=== PATIENT | male | born 1950 | race Caucasian/White ===

== ENCOUNTER 2019-07-09 14:18 | Emergency (ER) | payer OTHER ==
[2019-07-09] MEDS ORDERED: MECLIZINE HCL 12.5 MG TAB ONE (15:13)
--- NOTE | 2019-07-09 15:58 | RAD REPORT ---
EXAM DESCRIPTION: CT - Head Brain Wo Cont - 07/09/2019 3:51 pm CLINICAL HISTORY: dizziness Headache, drowsiness COMPARISON: No comparisons TECHNIQUE: All CT scans are performed using dose optimization technique as appropriate and may inclu de automated exposure control or mA/KV adjustment according to patient size. FINDINGS: No intracranial hemorrhage, hydrocephalus or extra-axial fluid collection.Mild brain atrop hy is seen with areas of gliosis in both occipital poles likely related to previous infarction. Mild generalized brain atrophy noted.No areas of brain edema or evidence of midline shift. The paranasal sinuses and mastoids are clear. The calvarium is intact. IMPRESSION: No acute intracranial abnormality.
--- NOTE | 2019-07-09 16:11 | EDPHYS ---
Physician Documentation [facility] Name: Braden Delvalle Age: 69 yrs Sex: Male : 1950 Arrival Date: 07/09/2019 Time: 14:22 Bed 17 Private MD: Shay White T ED Physician Kade Donahue HPI: 07/08 15:27 This 69 yrs old Male presents to ER via Ambulatory with complaints of la1 Dizziness. 15:27 The patient presents with sense of spinning, vertigo. Onset: The symptoms/episode la1 began/occurred this morning. Context: occurred at home, occurred while the patient was sitting, just prior to the episode the patient experienced no apparent symptoms. Modifying factors: The symptoms are alleviated by holding head still, the symptoms are aggravated by movement of head, changing position. Associated signs and symptoms: Pertinent negatives: abdominal pain, blurred vision, chest pain, confusion, diaphoresis, focal weakness, head injury, near-syncope, numbness, palpitations, seizure, syncope, vomiting. Severity of symptoms: At their worst the symptoms were mild in the emergency department the symptoms have improved. Patient's baseline: Neuro: alert and fully oriented, Motor: no deficits, Ambulation: walks without assistance, Speech: normal. The patient has not experienced similar symptoms in the past. pt with vertigo when he moves his head, feels ok at rest. Historical: - Allergies: 14:34 No Known Allergies; ph - PMHx: 14:34 Hypertension; Diabetes - NIDDM; CVA; Hyperlipidemia; ph - PSHx: 14:34 Knee surgery; Appendectomy; ph - Immunization history:: Flu vaccine is up to date. - Social history:: Smoking status: Patient denies any tobacco usage or history of. ROS: 15:28 Constitutional: Negative for fever, chills, and weight loss, Eyes: Negative for injury, la1 pain, redness, and discharge, ENT: Negative for injury, pain, and discharge, Neck: Negative for injury, pain, and swelling, Cardiovascular: Negative for chest pain, palpitations, and edema, Respiratory: Negative for shortness of breath, cough, wheezing, and pleuritic chest pain, Abdomen/GI: Negative for abdominal pain, nausea, vomiting, diarrhea, and constipation, Back: Negative for injury and pain, MS/Extremity: Negative for injury and deformity, Skin: Negative for injury, rash, and discoloration. 15:28 Neuro: Positive for dizziness, Negative for altered mental status, gait disturbance, headache, hearing loss, loss of consciousness, numbness, seizure activity, speech changes, syncope, near syncope, tingling, tinnitus, tremor, visual changes, weakness. Exam: 15:30 Constitutional: This is a well developed, well nourished patient who is awake, alert, la1 and in no acute distress. Head/Face: Normocephalic, atraumatic. Eyes: Pupils equal round and reactive to light, extra-ocular motions intact. Lids and lashes normal. Conjunctiva and sclera are non-icteric and not injected. Cornea within normal limits. Periorbital areas with no swelling, redness, or edema. ENT: Nares patent. No nasal discharge, no septal abnormalities noted. Tympanic membranes are normal and external auditory canals are clear. Oropharynx with no redness, swelling, or masses, exudates, or evidence of obstruction, uvula midline. Mucous membranes moist. Neck: Trachea midline, Supple, full range of motion without nuchal rigidity, or vertebral point tenderness. No Meningismus. Chest/axilla: Normal chest wall appearance and motion. Nontender with no deformity. No lesions are appreciated. Cardiovascular: Regular rate and rhythm with a normal S1 and S2. No gallops, murmurs, or rubs. Normal PMI, no JVD. No pulse deficits. Respiratory: Lungs have equal breath sounds bilaterally, clear to auscultation Abdomen/GI: Soft, non-tender, with normal bowel sounds. No distension Back: No spinal tenderness. No costovertebral tenderness. Full range of motion. Skin: Warm, dry with normal turgor. Normal color with no rashes, no lesions, and no evidence of cellulitis. MS/ Extremity: Pulses equal, no cyanosis. Neurovascular intact. Full, normal range of motion. 15:30 Neuro: Orientation: is normal, to person, place, time \T\ situation. Memory: is normal, Cranial nerves: CN II- XII are normal as tested, extraocular movements are intact, Facial palsy and sensory deficits are absent. no gross hearing deficit,. a few beats of right beating horizontal nystagmus noted. Speech is clear and appropriate. Sensation: is normal. Vital Signs: 14:29 BP 133 / 78; Pulse 78; Resp 18; Temp 98.1; Pulse Ox 98% ; Weight 74.84 kg; Height 5 ft. ph 8 in. (172.72 cm); 15:30 BP 129 / 84; Pulse 76; Resp 18; Pulse Ox 96% on R/A; Pain 0/10; rb1 16:30 BP 139 / 80; Pulse 68; Resp 17; Pulse Ox 95% on R/A; Pain 0/10; rb1 14:29 Body Mass Index 25.09 (74.84 kg, 172.72 cm) ph MDM: 14:46 Patient medically screened. la1 16:05 Data reviewed: vital signs, nurses notes, radiologic studies, I have discussed the la1 patient's presentation/case with the attending Emergency Department Physician; and as a result, I will discharge patient. Data interpreted: Pulse oximetry: on room air is 96 %. Interpretation: normal. Counseling: I had a detailed discussion with the patient and/or guardian regarding: the historical points, exam findings, and any diagnostic results supporting the discharge/admit diagnosis, radiology results, the need for outpatient follow up, a family practitioner, to return to the emergency department if symptoms worsen or persist or if there are any questions or concerns that arise at home. Medication response: anitvert . Response to treatment: the patient's symptoms have markedly improved after treatment. ED course: Pt feeling better after antivert, no focal neurological deficits, mild intermittent horizontal right beating nystagmus. Pt only has sx when moving head, speech is normal, gait is normal. Strict return precautions given. . 07/08 15:23 Order name: Head Brain Wo Cont EDMS Administered Medications: 15:12 Drug: Antivert 25 mg Route: PO; rb1 15:42 Follow up: Response: No adverse reaction rb1 Disposition: 18:22 Co-signature as Attending Physician, Kade Donahue MD. rn Disposition: 07/09/19 16:10 Discharged to Home. Impression: Benign paroxysmal vertigo, Dizziness and giddiness. - Condition is Stable. - Discharge Instructions: Benign Positional Vertigo, Dizziness. - Prescriptions for Meclizine 25 mg Oral Tablet - take 1 tablet by ORAL route every 8 hours As needed; 30 tablet. - Medication Reconciliation Form, Thank You Letter form. - Follow up: Shay White MD; When: 2 - 3 days; Reason: Recheck today's complaints, Re-evaluation by your physician. - Problem is new. - Symptoms have improved. Signatures: Dispatcher [employer] EDMN Kade Donahue MD MD rn Derrell Lowery, KAIAKO KURA TUARUA-C KAIAKO KURA TUARUA-Cla1 Leigh Freitas, RN RN ph Latha Simms, RN RN rb1 Corrections: (The following items were deleted from the chart) 15:22 15:13 CT-HEAD/BRAIN W/O CONTRAST ordered. EDMN EDMS 17:23 17:17 Head Brain Wo Cont+CT.RAD.BRZ ordered. EDMN EDMS 17:25 16:10 07/09/2019 16:10 Discharged to Home. Impression: Benign paroxysmal vertigo; rb1 Dizziness and giddiness. Condition is Stable. Forms are Medication Reconciliation Form, Thank You Letter, Antibiotic Education, Prescription Opioid Use. Follow up: Shay White; When: 2 - 3 days; Reason: Recheck today's complaints, Re-evaluation by your physician. Problem is new. Symptoms have improved. la1
--- NOTE | 2019-07-09 16:11 | ER ---
Nurse's Notes [facility] Name: Braden Delvalle Age: 69 yrs Sex: Male : 1950 Arrival Date: 07/09/2019 Time: 14:22 Bed 17 Private MD: Shay White T Diagnosis: Benign paroxysmal vertigo;Dizziness and giddiness Presentation: 07/08 14:29 Chief complaint: Patient states: Dizziness upon waking this morning at 0830, states, " ph I went to sit up and got very dizzy and laid back down." Denies weakness, also denies N/V or recent illness, went to bed last night at approx 1130. Coronavirus screen: The patient has NOT traveled to a country currently being monitored by the [facility] within the last 14 days. The patient has NOT had contact with any known and/or suspected case of coronavirus. Ebola Screen: No symptoms or risks identified at this time. Initial Sepsis Screen: Does the patient meet any 2 criteria? No. Patient's initial sepsis screen is negative. Does the patient have a suspected source of infection? No. Patient's initial sepsis screen is negative. Risk Assessment: Do you want to hurt yourself or someone else? Patient reports no desire to harm self or others. 14:29 Method Of Arrival: Ambulatory ph 14:29 Acuity: CONRADO 3 ph 14:35 Onset of symptoms was July 09, 2019. rb1 Historical: - Allergies: 14:34 No Known Allergies; ph - PMHx: 14:34 Hypertension; Diabetes - NIDDM; CVA; Hyperlipidemia; ph - PSHx: 14:34 Knee surgery; Appendectomy; ph - Immunization history:: Flu vaccine is up to date. - Social history:: Smoking status: Patient denies any tobacco usage or history of. Screenin:35 Abuse screen: Denies threats or abuse. Nutritional screening: No deficits noted. rb1 Tuberculosis screening: No symptoms or risk factors identified. Fall Risk None identified. Assessment: 14:35 General: Appears in no apparent distress. comfortable, Behavior is calm, cooperative, rb1 Denies fever, feeling ill, fatigue. Pain: Denies pain. Neuro: Level of Consciousness is awake, alert, obeys commands, Oriented to person, place, time, situation, Reports dizziness, Denies blurred vision headache. Cardiovascular: Capillary refill < 3 seconds is brisk in bilateral fingers. Respiratory: Airway is patent Respiratory effort is even, unlabored, Respiratory pattern is regular, symmetrical. GI: No signs and/or symptoms were reported involving the gastrointestinal system. : No signs and/or symptoms were reported regarding the genitourinary system. Derm: Skin is pink, warm \\T\\ dry. 15:30 Reassessment: Patient appears in no apparent distress at this time. Patient and/or rb1 family updated on plan of care and expected duration. Pain level reassessed. Patient is alert, oriented x 3, equal unlabored respirations, skin warm/dry/pink. 15:46 Reassessment: pt went to CT. rb1 16:40 Reassessment: Patient appears in no apparent distress at this time. Patient and/or rb1 family updated on plan of care and expected duration. Pain level reassessed. Patient is alert, oriented x 3, equal unlabored respirations, skin warm/dry/pink. Patient denies pain at this time. Vital Signs: 14:29 BP 133 / 78; Pulse 78; Resp 18; Temp 98.1; Pulse Ox 98% ; Weight 74.84 kg; Height 5 ft. ph 8 in. (172.72 cm); 15:30 BP 129 / 84; Pulse 76; Resp 18; Pulse Ox 96% on R/A; Pain 0/10; rb1 16:30 BP 139 / 80; Pulse 68; Resp 17; Pulse Ox 95% on R/A; Pain 0/10; rb1 14:29 Body Mass Index 25.09 (74.84 kg, 172.72 cm) ph ED Course: 14:22 Patient arrived in ED. ag5 14:22 Shay White MD is Private Physician. ag5 14:32 Triage completed. ph 14:34 Arm band placed on Patient placed in an exam room, on a stretcher. ph 14:35 Patient has correct armband on for positive identification. Bed in low position. Call rb1 light in reach. Side rails up X 1. Pulse ox on. NIBP on. Warm blanket given. 14:44 Derrell Lowery FNP-C is PHCP. la1 14:44 Kade Donahue MD is Attending Physician. la1 15:05 Latha Simms, DAMON is Primary Nurse. rb1 15:51 Head Brain Wo Cont In Process Unspecified. EDMS 16:10 Shay White MD is Referral Physician. la1 16:52 No provider procedures requiring assistance completed. Patient did not have IV access rb1 during this emergency room visit. Administered Medications: 15:12 Drug: Antivert 25 mg Route: PO; rb1 15:42 Follow up: Response: No adverse reaction rb1 Outcome: 16:10 Discharge ordered by MD. la1 16:52 Patient left the ED. rb1 16:52 Discharged to home ambulatory, with significant other. rb1 16:52 Condition: stable 16:52 Discharge instructions given to patient, Instructed on discharge instructions, follow up and referral plans. medication usage, Demonstrated understanding of instructions, follow-up care, medications, Prescriptions given X Signatures: Dispatcher [employer] EDCA Derrell Lowery, PUSHER RUNNER-C PUSHER RUNNER-Cla1 Leigh Freitas, RN RN Latha Simms RN RN rb1 Estephanie Deal ag5 Corrections: (The following items were deleted from the chart) 17:27 17:25 Patient left the ED. rb1 rb1
[2019-07-09 17:38] VITALS: TEMP 98.1
[2019-07-09 17:39] VITALS: BP 129/84; O2SAT 96
== END 2019-07-09 17:25 | disposition home or self-care (01) ==
LOC: ER 14:18
DX: H81.10 Benign paroxysmal vertigo, unspecified ear (principal); I10 Essential (primary) hypertension
CPT/HCPCS: 70450; 99284; J8597

== ENCOUNTER 2020-08-16 20:11 | Emergency (ER) | payer OTHER ==
[2020-08-16] MEDS ORDERED: MECLIZINE HCL 12.5 MG TAB ONE (21:48)
--- NOTE | 2020-08-16 23:31 | ER ---
Nurse's Notes [facility] Name: Braden Delvalle Age: 70 yrs Sex: Male : 1950 Arrival Date: 08/16/2020 Time: 20:15 Bed 27 Private MD: Diagnosis: Vertigo Presentation: 08/16 20:54 Chief complaint: Patient states: HX of vertigo of July last year. This time, it ca1 started yesterday. Reports dizziness and pressure on my head. Denies N/V. Coronavirus screen: Client denies travel out of the [place] in the last 14 days. At this time, the client does not indicate any symptoms associated with coronavirus-19. Ebola Screen: Patient negative for fever greater than or equal to 101.5 degrees Fahrenheit, and additional compatible Ebola Virus Disease symptoms Patient denies exposure to infectious person. Patient denies travel to an Ebola-affected area in the 21 days before illness onset. No symptoms or risks identified at this time. Initial Sepsis Screen: Does the patient meet any 2 criteria? No. Patient's initial sepsis screen is negative. Does the patient have a suspected source of infection? No. Patient's initial sepsis screen is negative. Risk Assessment: Do you want to hurt yourself or someone else? Patient reports no desire to harm self or others. Onset of symptoms was August 15, 2020. 20:54 Method Of Arrival: Ambulatory ca1 20:54 Acuity: CONRADO 3 ca1 Historical: - Allergies: 20:58 No Known Allergies; ca1 - Home Meds: 20:59 warfarin 4 mg Oral tab 1 tab once daily [Active]; ca1 - PMHx: 20:58 CVA; Diabetes - NIDDM; Hyperlipidemia; Hypertension; ca1 - PSHx: 20:58 Knee surgery; Appendectomy; ca1 - Immunization history:: Client reports receiving the 2nd dose of the Covid vaccine, Client reports receiving the 1st dose of the Covid vaccine, Pneumococcal vaccine is up to date, Flu vaccine is up to date. - Social history:: Smoking status: Patient/guardian denies using tobacco, the patient reports quitting approximately 25 years ago. Screenin:39 Abuse screen: Denies threats or abuse. Denies injuries from another. Nutritional zb screening: No deficits noted. Tuberculosis screening: No symptoms or risk factors identified. Fall Risk None identified. Assessment: 21:37 General: Appears in no apparent distress. comfortable, Behavior is calm, cooperative, zb appropriate for age. Pain: Denies pain. Neuro: Level of Consciousness is awake, alert, obeys commands, Oriented to person, place, time, situation, Director [employer] are equal bilaterally Moves all extremities. Full function Gait is steady, Speech is normal, Intact Reports dizziness, since yesterday a syncopal episode. Cardiovascular: Capillary refill < 3 seconds in bilateral fingers Patient's skin is warm and dry. Pulses are all present. Respiratory: Airway is patent Respiratory effort is even, unlabored, Respiratory pattern is regular, symmetrical. GI: Abdomen is round. Derm: Skin is intact, is healthy with good turgor, Skin is dry, Skin is normal, Skin temperature is warm. Musculoskeletal: Range of motion: intact in all extremities. 22:30 Reassessment: Patient appears in no apparent distress at this time. Patient and/or zb family updated on plan of care and expected duration. Pain level reassessed. Patient is alert, oriented x 3, equal unlabored respirations, skin warm/dry/pink. 23:53 Reassessment: patient and family d/c. ambulated well. no issue at this time. zb Vital Signs: 20:54 BP 129 / 82; Pulse 79; Resp 15 S; Temp 97.5(TE); Pulse Ox 16% on R/A; Weight 83.91 kg ca1 (R); Height 5 ft. 8 in. (172.72 cm) (R); Pain 0/10; 22:30 BP 124 / 79; Pulse 72; Resp 18; Pulse Ox 98% on R/A; zb 23:33 BP 112 / 69; Pulse 88; Resp 16; Pulse Ox 100% on R/A; zb 20:54 Body Mass Index 28.13 (83.91 kg, 172.72 cm) ca1 ED Course: 20:15 Patient arrived in ED. bp1 20:57 Triage completed. ca1 20:58 Arm band placed on right wrist. ca1 21:01 Phoebe Esteves RN is Primary Nurse. zb 21:03 Marco Antonio Bentley PA is PHCP. jmm 21:03 Jacob Epperson MD is Attending Physician. jmm 21:39 Patient has correct armband on for positive identification. Bed in low position. Call zb light in reach. Side rails up X 1. Adult w/ patient. Pulse ox on. NIBP on. Door closed. Noise minimized. 22:02 CT Head Angio In Process Unspecified. EDMS 22:03 CT Neck Angio In Process Unspecified. EDMS 22:03 CT Head Brain wo Cont In Process Unspecified. EDMS 22:30 Inserted saline lock: 20 gauge in left forearm, using aseptic technique. ,using aseptic zb technique. performed by 4. 23:52 No provider procedures requiring assistance completed. IV discontinued, intact, zb bleeding controlled, No redness/swelling at site. Pressure dressing applied. Administered Medications: 21:30 Drug: Meclizine 25 mg Route: PO; zb 22:30 Follow up: Response: No adverse reaction; Marked relief of symptoms zb Outcome: 23:30 Discharge ordered by . qi 23:52 Discharged to home ambulatory. zb 23:52 Condition: stable 23:52 Discharge instructions given to patient, family, Instructed on discharge instructions, follow up and referral plans. medication usage, Demonstrated understanding of instructions, follow-up care, medications, Prescriptions given X 1. 23:53 Patient left the ED. zb Signatures: Dispatcher [employer] EDMS Marco Antonio Bentley PA PA jmm Acob, Cheryl, RN RN Angela Ayala Zipporah, RN RN bridget
--- NOTE | 2020-08-16 23:31 | EDPHYS ---
Physician Documentation [facility] Name: Braden Delvalle Age: 70 yrs Sex: Male : 1950 Arrival Date: 08/16/2020 Time: 20:15 Bed 27 Private MD: ED Physician Jacob Epperson HPI: 08/16 21:08 This 70 yrs old Male presents to ER via Ambulatory with complaints of Vertigo.jmm 21:08 The patient presents with dizziness. Onset: The symptoms/episode began/occurred jmm acutely, just prior to arrival. Modifying factors: The symptoms are alleviated by nothing, the symptoms are aggravated by movement of head, standing up, changing position. Associated signs and symptoms: Pertinent negatives: vomiting, weakness. This is a 70 year old male with a history of cva, hlp, htn that presents to the ED with complaints of acute onset dizziness which began after getting up out of bed. Patient suffers from chronic allergies. Denies weakness, vomiting, changes in vision. . Historical: - Allergies: 20:58 No Known Allergies; ca1 - Home Meds: 20:59 warfarin 4 mg Oral tab 1 tab once daily [Active]; ca1 - PMHx: 20:58 CVA; Diabetes - NIDDM; Hyperlipidemia; Hypertension; ca1 - PSHx: 20:58 Knee surgery; Appendectomy; ca1 - Immunization history:: Client reports receiving the 2nd dose of the Covid vaccine, Client reports receiving the 1st dose of the Covid vaccine, Pneumococcal vaccine is up to date, Flu vaccine is up to date. - Social history:: Smoking status: Patient/guardian denies using tobacco, the patient reports quitting approximately 25 years ago. ROS: 21:08 Constitutional: Negative for fever, chills, and weight loss, Cardiovascular: Negative jmm for chest pain, palpitations, and edema, Respiratory: Negative for shortness of breath, cough, wheezing, and pleuritic chest pain. 21:08 Neuro: Positive for vertigo. 21:08 All other systems are negative. Exam: 21:08 Constitutional: This is a well developed, well nourished patient who is awake, alert, jmm and in no acute distress. Head/Face: atraumatic. 21:08 ENT: Moist Mucus Membranes Neck: Trachea midline, Supple Chest/axilla: Normal chest wall appearance and motion. Cardiovascular: Regular rate and rhythm. No edema appreciated Respiratory: Normal respirations, no respiratory distress appreciated Abdomen/GI: Non distended, soft Back: Normal ROM Skin: General appearance color normal MS/ Extremity: Moves all extremities, no obvious deformities appreciated, no edema noted to the lower extremities 21:08 Eyes: Nystagmus: 21:08 Neuro: Orientation: is normal, Mentation: is normal, Memory: is normal, Cerebellar function: is grossly normal. 21:08 Psych: Behavior/mood is pleasant, cooperative. Vital Signs: 20:54 BP 129 / 82; Pulse 79; Resp 15 S; Temp 97.5(TE); Pulse Ox 16% on R/A; Weight 83.91 kg ca1 (R); Height 5 ft. 8 in. (172.72 cm) (R); Pain 0/10; 22:30 BP 124 / 79; Pulse 72; Resp 18; Pulse Ox 98% on R/A; zb 23:33 BP 112 / 69; Pulse 88; Resp 16; Pulse Ox 100% on R/A; zb 20:54 Body Mass Index 28.13 (83.91 kg, 172.72 cm) ca1 MDM: 21:08 Patient medically screened. [facility] 23:28 Data reviewed: vital signs, nurses notes. Counseling: I had a detailed discussion with qi the patient and/or guardian regarding: the historical points, exam findings, and any diagnostic results supporting the discharge/admit diagnosis, radiology results, the need for outpatient follow up, to return to the emergency department if symptoms worsen or persist or if there are any questions or concerns that arise at home. ED course: CTA is negative. I do not suspect central cause. Patient states feeling much better. Most likely perepheral. Advised to follow up with pcp/neuro. Patient understood and agrees with the plan of care. . 08/16 21:13 Order name: CT Head Angio [facility] 08/16 21:13 Order name: CT Head Brain wo Cont [facility] 08/16 21:13 Order name: Saline Lock; Complete Time: 21:34 [facility] 08/16 21:13 Order name: CT Neck Angio [facility] Administered Medications: 21:30 Drug: Meclizine 25 mg Route: PO; zb 22:30 Follow up: Response: No adverse reaction; Marked relief of symptoms zb Disposition: 08/17 07:27 Co-signature as Attending Physician, Jacob Epperson MD. [email or web address] Disposition: 08/16/20 23:30 Discharged to Home. Impression: Vertigo. - Condition is Stable. - Discharge Instructions: Benign Positional Vertigo, Krystle Maneuver Self-Care. - Prescriptions for Meclizine 25 mg Oral Tablet - take 1 tablet by ORAL route every 8 hours As needed; 30 tablet. - Medication Reconciliation Form, Thank You Letter, Antibiotic Education, Prescription Opioid Use form. - Follow up: Private Physician; When: 2 - 3 days; Reason: Recheck today's complaints, Continuance of care, Re-evaluation by your physician. Signatures: Dispatcher [employer] EDMS Marco Antonio Bentley PA PA jmm Acob, Cheryl RN RN ca1 Jacob Epperson MD MD [facility] Phoebe Esteves RN RN zb Corrections: (The following items were deleted from the chart) 08/16 23:53 23:30 08/16/2020 23:30 Discharged to Home. Impression: Vertigo. Condition is Stable. zb Forms are Medication Reconciliation Form, Thank You Letter, Antibiotic Education, Prescription Opioid Use. Follow up: Private Physician; When: 2 - 3 days; Reason: Recheck today's complaints, Continuance of care, Re-evaluation by your physician. qi
[2020-08-16 23:59] VITALS: TEMP 97.5
[2020-08-17 00:39] VITALS: BP 112/69; O2SAT 100
--- NOTE | 2020-08-17 20:13 | RAD REPORT ---
EXAM DESCRIPTION: CT - Head Brain Wo Cont - 08/17/2020 6:44 am CLINICAL HISTORY: DIZZINESS COMPARISON: 07/09/2019 TECHNIQUE: Axial CT of the head obtained from the skull apex to the skull base without contrast. Thi s exam was performed according to our departmental dose-optimization program, which includes automate d exposure control, adjustment of the mA and/or kV according to patient size and/or use of iterative reconstruction technique. FINDINGS: No acute intracranial hemorrhage identified. No mass, mass effect, shift of the midline, a bnormal extra-axial fluid collection or CT evidence of acute ischemic change identified. The ventricu lar system and sulcal spaces are mildly enlarged compatible with mild cerebral atrophy. Scattered a reas of hypodensity throughout the supratentorial white matter are nonspecific and may be related to chronic small vessel ischemic change. Bilateral occipital encephalomalacia compatible with remote inf arctions. The visualized paranasal sinuses and mastoid air cells are well aerated. No skull fracture identifi ed. Visualized orbits and globes are unremarkable. Atherosclerotic calcification of the intracranial internal carotid arteries. IMPRESSION: 1. No acute intracranial abnormality by CT criteria. Electronically signed by: Ramakrishna Velasquez 08/16/2020 10:17 PM CDT Due to temporary technical issues with the PACS/Fluency reporting system, reports are being signed by the in house radiologists without review as a courtesy to insure prompt reporting. The interpreting radiologist is fully responsible for the content of the report.
--- NOTE | 2020-08-17 20:15 | RAD REPORT ---
EXAM DESCRIPTION: CT - Neck Angio - 08/17/2020 6:44 am 1. CTA of the head with contrast. 2. CTA of the neck with contrast. CLINICAL HISTORY: 70 years, Male, DIZZINESS COMPARISON: 07/09/2019 TECHNIQUE: Axial CTA images of the head and neck obtained following the uncomplicated intravenous ad ministration of iodinated contrast. 3-D/MIP reformatted images available. This exam was performed acc ording to our departmental dose-optimization program, which includes automated exposure control, adju stment of the mA and/or kV according to patient size and/or use of iterative reconstruction technique . FINDINGS: CTA head: In the anterior circulation, the intracranial internal carotid arteries have normal course and calibe r. Mild nonflow limiting atherosclerotic plaque of the paraclinoid intracranial internal carotid pamela mercedes. The internal carotid arteries bifurcate into widely patent A1 and M1 segments of the anterior a nd middle cerebral arteries respectively. No evidence of flow-limiting stenosis, aneurysm, occlusion, or dissection in the anterior circulation. The anterior communicating artery is patent. In the posterior circulation, the intracranial vertebral arteries combine to form a patent basilar ar olimpia. The basilar artery bifurcates into normal caliber posterior cerebral arteries. 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 No evidence of stenosis, aneurysm , occlusion, or dissection in the posterior circulation. No definite acute intracranial abnormality identified. No acute abnormality of the osseous calvarium. Paranasal sinuses and mastoid air cells are well aerated. CTA NECK: The aortic arch has bovine configuration. The origin of the great vessels are widely patent. The right common carotid artery is widely patent and bifurcates into widely patent internal and exter nal carotid arteries. Minimal nonflow-limiting calcified atherosclerotic plaque at the carotid bulb. 0% stenosis by NASCET criteria. No evidence of occlusion or dissection. The left common carotid artery is widely patent and bifurcates into widely patent internal and political theory professor al carotid arteries. Minimal nonflow limiting calcified atherosclerotic plaque at the carotid bulb. 0 % stenosis by NASCET criteria. No evidence of occlusion or dissection. The cervical vertebral arteries are widely patent throughout their course. No evidence of occlusion, stenosis, or dissection. No definite acute abnormalities in the neck soft tissues. No apical pneumothorax. No acute osseous ab normalities. Multilevel degenerative endplate spondylosis, facet arthropathy, and uncovertebral spurr ing with mild to moderate multilevel loss of intervertebral disc height. IMPRESSION: 1. No evidence of flow-limiting stenosis/occlusion involving the cervical carotid or gokul tebral arteries. 2. No evidence of large vessel occlusion, flow-limiting stenosis, or aneurysm in the anterior intracr anial arterial circulation. 3. No acute abnormality identified in the posterior intracranial arterial circulation. Narrow caliber patent bilateral posterior cerebral arteries may represent diminished flow on the basis of encephalo malacia related to remote bilateral WINDOWS APPLICATION PACKAGER distribution infarctions. Electronically signed by: Ramakrishna Velasquez 08/16/2020 10:34 PM CDT Due to temporary technical issues with the PACS/Fluency reporting system, reports are being signed by the in house radiologists without review as a courtesy to insure prompt reporting. The interpreting radiologist is fully responsible for the content of the report.
--- NOTE | 2020-08-17 20:21 | RAD REPORT ---
EXAM DESCRIPTION: CT - Head angio - 08/17/2020 6:43 am 1. CTA of the head with contrast. 2. CTA of the neck with contrast. CLINICAL HISTORY: 70 years, Male, DIZZINESS COMPARISON: 07/09/2019 TECHNIQUE: Axial CTA images of the head and neck obtained following the uncomplicated intravenous ad ministration of iodinated contrast. 3-D/MIP reformatted images available. This exam was performed acc ording to our departmental dose-optimization program, which includes automated exposure control, adju stment of the mA and/or kV according to patient size and/or use of iterative reconstruction technique . FINDINGS: CTA head: In the anterior circulation, the intracranial internal carotid arteries have normal course and calibe r. Mild nonflow limiting atherosclerotic plaque of the paraclinoid intracranial internal carotid pamela mercedes. The internal carotid arteries bifurcate into widely patent A1 and M1 segments of the anterior a nd middle cerebral arteries respectively. No evidence of flow-limiting stenosis, aneurysm, occlusion, or dissection in the anterior circulation. The anterior communicating artery is patent. In the posterior circulation, the intracranial vertebral arteries combine to form a patent basilar ar olimpia. The basilar artery bifurcates into normal caliber posterior cerebral arteries. 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 No evidence of stenosis, aneurysm , occlusion, or dissection in the posterior circulation. No definite acute intracranial abnormality identified. No acute abnormality of the osseous calvarium. Paranasal sinuses and mastoid air cells are well aerated. CTA NECK: The aortic arch has bovine configuration. The origin of the great vessels are widely patent. The right common carotid artery is widely patent and bifurcates into widely patent internal and exter nal carotid arteries. Minimal nonflow-limiting calcified atherosclerotic plaque at the carotid bulb. 0% stenosis by NASCET criteria. No evidence of occlusion or dissection. The left common carotid artery is widely patent and bifurcates into widely patent internal and tentering machine feeder al carotid arteries. Minimal nonflow limiting calcified atherosclerotic plaque at the carotid bulb. 0 % stenosis by NASCET criteria. No evidence of occlusion or dissection. The cervical vertebral arteries are widely patent throughout their course. No evidence of occlusion, stenosis, or dissection. No definite acute abnormalities in the neck soft tissues. No apical pneumothorax. No acute osseous ab normalities. Multilevel degenerative endplate spondylosis, facet arthropathy, and uncovertebral spurr ing with mild to moderate multilevel loss of intervertebral disc height. IMPRESSION: 1. No evidence of flow-limiting stenosis/occlusion involving the cervical carotid or gokul tebral arteries. 2. No evidence of large vessel occlusion, flow-limiting stenosis, or aneurysm in the anterior intracr anial arterial circulation. 3. No acute abnormality identified in the posterior intracranial arterial circulation. Narrow caliber patent bilateral posterior cerebral arteries may represent diminished flow on the basis of encephalo malacia related to remote bilateral STANDPIPE TENDER distribution infarctions. Electronically signed by: Ramakrishna Velasquez 08/16/2020 10:34 PM CDT Due to temporary technical issues with the PACS/Fluency reporting system, reports are being signed by the in house radiologists without review as a courtesy to insure prompt reporting. The interpreting radiologist is fully responsible for the content of the report.
== END 2020-08-16 23:53 | disposition home or self-care (01) ==
LOC: ER 20:11
DX: R42 Dizziness and giddiness (principal); I10 Essential (primary) hypertension; Z86.73 Personal history of transient ischemic attack (TIA), and cerebral infarction without residual deficits; Z79.01 Long term (current) use of anticoagulants
CPT/HCPCS: 82565; 70450; 70496; 70498; 99284; Q9967

== ENCOUNTER 2020-09-16 18:49 | Emergency (ER) | payer OTHER ==
--- NOTE | 2020-09-16 20:01 | RAD REPORT ---
EXAM DESCRIPTION: CT - Head Brain Wo Cont - 09/16/2020 7:53 pm CLINICAL HISTORY: DIZZINESS Headache, drowsiness, dizziness COMPARISON: Head angio dated 08/16/2020; Head Brain Wo Cont dated 08/16/2020; Neck Angio dated 08/17/19 21 TECHNIQUE: All CT scans are performed using dose optimization technique as appropriate and may inclu de automated exposure control or mA/KV adjustment according to patient size. FINDINGS: No intracranial hemorrhage, hydrocephalus or extra-axial fluid collection.Bilateral occipi carmelita lobe encephalomalacia again seen, unchanged.No areas of brain edema or evidence of midline shift. The paranasal sinuses and mastoids are clear. The calvarium is intact. IMPRESSION: No acute intracranial abnormality.
--- NOTE | 2020-09-16 20:02 | RAD REPORT ---
EXAM DESCRIPTION: RAD - Chest Single View - 09/16/2020 7:57 pm CLINICAL HISTORY: Dizziness Chest pain. COMPARISON: No comparisons FINDINGS: Portable technique limits examination quality. The lungs are grossly clear. The heart is normal in size. No displaced fractures. IMPRESSION: No acute intrathoracic process suspected.
[2020-09-16] MEDS ORDERED: MECLIZINE HCL 12.5 MG TAB ONE (20:09)
[2020-09-16 20:35] LABS: ALT/SGPT 15 U/L (12-78); AST/SGOT 18 U/L (15-37); Albumin 3.8 g/dL (3.4-5.0); Alkaline Phosphatase 77 U/L (45-117); BUN Blood Urea Nitrogen 16 mg/dL (7-18); Bicarbonate 26 mmol/L (21-32); Bilirubin Direct < 0.1 mg/dL (0-0.2); Bilirubin Total 0.4 mg/dL (0.2-1.0); Glucose Level 94 mg/dL (74-106); Magnesium 2.4 mg/dL (1.8-2.4); NT PRO-BNP 51 pg/mL (<125); Potassium 3.4 mmol/L (3.5-5.1); Protein, Total 7.4 g/dL (6.4-8.2); Sodium Level 143 mmol/L (136-145); Troponin (Emerg Dept Use Only) < 0.02 ng/mL (0.0-0.045)
[2020-09-16 20:39] LABS: Absolute Lymphocytes (CBC) 1.4 K/uL (0.7-4.9); Basophils % 0.6 % (0-1.3); Hematocrit 42.9 % (39.6-49.0); Lymphocytes % 18.8 % (15.3-44.8); MPV 9.3 fL (7.6-11.3); RBC Red Blood Cell Count 4.98 M/uL (4.33-5.43)
[2020-09-16 20:41] LABS: Protime INR 1.88
--- NOTE | 2020-09-16 21:12 | EDPHYS ---
Physician Documentation [facility] Name: Braden Delvalle Age: 70 yrs Sex: Male : 1950 Arrival Date: 09/16/2020 Time: 18:55 Bed 6 Private MD: ED Physician Wayne Lin HPI: 09/16 19:38 This 70 yrs old Male presents to ER via Ambulatory with complaints of Vertigo.pm1 19:38 The patient presents with vertigo. Onset: The symptoms/episode began/occurred pm1 yesterday. Context: occurred at home, just prior to the episode the patient experienced no apparent symptoms. Modifying factors: The symptoms are alleviated by Antivert, the symptoms are aggravated by movement of head. Associated signs and symptoms: The patient has no apparent associated signs or symptoms, Pertinent negatives: chest pain, headache, shortness of breath. Severity of symptoms: in the emergency department the symptoms have improved. The patient has experienced similar episodes in the past, a few times. The patient has not recently seen a physician. Symptoms the same as prior vertigo. Responsive to Antivert for 6-8 hours. Presenting to the ED because he was concerned that he took three total doses of Antivert and the vertigo has not completely resolved. Historical: - Allergies: 19:06 No Known Allergies; ca1 - Home Meds: 19:06 warfarin 4 mg Oral tab 1 tab MWF, 3mg TTH [Active]; ca1 - PMHx: 19:06 CVA; Diabetes - NIDDM; Hyperlipidemia; Hypertension; ca1 - Immunization history:: Client reports receiving the 2nd dose of the Covid vaccine, Client reports receiving the 1st dose of the Covid vaccine, Pneumococcal vaccine is up to date, Flu vaccine is up to date. - Social history:: Smoking status: Patient/guardian denies using tobacco, the patient reports quitting approximately 20 years ago. ROS: 19:38 Constitutional: Negative for fever, chills, and weight loss, Eyes: Negative for injury, pm1 pain, redness, and discharge, ENT: Negative for injury, pain, and discharge, Neck: Negative for injury, pain, and swelling, Cardiovascular: Negative for chest pain, palpitations, and edema, Respiratory: Negative for shortness of breath, cough, wheezing, and pleuritic chest pain, Abdomen/GI: Negative for abdominal pain, nausea, vomiting, diarrhea, and constipation, Back: Negative for injury and pain, MS/Extremity: Negative for injury and deformity, Skin: Negative for injury, rash, and discoloration. 19:38 Neuro: Positive for dizziness, Negative for headache, numbness, tingling. Exam: 19:38 Constitutional: This is a well developed, well nourished patient who is awake, alert, pm1 and in no acute distress. Head/Face: Normocephalic, atraumatic. 19:38 Skin: Warm, dry with normal turgor. Normal color with no rashes, no lesions, and no evidence of cellulitis. MS/ Extremity: Pulses equal, no cyanosis. Neurovascular intact. Full, normal range of motion. 19:38 Eyes: Periorbital structures: appear normal, Pupils: no acute changes, Extraocular movements: no acute changes, Nystagmus: horizontal when looking to the left. 19:38 Cardiovascular: Rate: normal, Rhythm: regular, Pulses: no pulse deficits are appreciated. 19:38 Respiratory: Exam negative for acute changes, respiratory distress, shortness of breath. 19:38 Abdomen/GI: Inspection: abdomen appears normal, Palpation: abdomen is soft and non-tender, in all quadrants. 19:38 Neuro: Exam negative for acute changes, Orientation: is normal, Mentation: is normal, Motor: is normal, moves all fours. Vital Signs: 19:00 Pulse 84; Resp 16 S; Temp 97.9; Pulse Ox 99% ; Weight 83.91 kg (R); Height 5 ft. 8 in. ca1 (172.72 cm) (R); Pain 0/10; 19:06 BP 129 / 85; ca1 21:24 BP 146 / 75; Pulse 80; Resp 18; Pulse Ox 98% on R/A; ea 19:00 Body Mass Index 28.13 (83.91 kg, 172.72 cm) ca1 MDM: 19:28 Patient medically screened. pm1 21:10 Data reviewed: vital signs. Data interpreted: Pulse oximetry: on room air is 99 %. pm1 Interpretation: normal. Counseling: I had a detailed discussion with the patient and/or guardian regarding: the historical points, exam findings, and any diagnostic results supporting the discharge/admit diagnosis, lab results, radiology results, the need for outpatient follow up, a neurologist, to return to the emergency department if symptoms worsen or persist or if there are any questions or concerns that arise at home. 09/16 19:38 Order name: Basic Metabolic Panel pm1 09/16 19:38 Order name: CBC with Diff pm1 09/16 19:38 Order name: LFT's pm1 09/16 19:38 Order name: Magnesium pm1 09/16 19:38 Order name: NT PRO-BNP; Complete Time: 21:05 pm1 09/16 19:38 Order name: PT-INR; Complete Time: 21:05 pm1 09/16 19:38 Order name: CT Head Brain wo Cont; Complete Time: 20:29 pm1 09/16 19:38 Order name: Troponin (emerg Dept Use Only); Complete Time: 21:05 pm1 09/16 19:38 Order name: XRAY Chest (1 view); Complete Time: 20:29 pm1 09/16 19:39 Order name: Basic Metabolic Panel; Complete Time: 21:05 EDMS 09/16 19:39 Order name: CBC with Automated Diff; Complete Time: 21:05 EDMS 09/16 19:39 Order name: Liver (Hepatic) Function; Complete Time: 21:05 EDMS 09/16 19:39 Order name: Magnesium; Complete Time: 21:05 EDMS 09/16 19:38 Order name: EKG; Complete Time: 19:39 pm1 09/16 19:38 Order name: Cardiac monitoring; Complete Time: 20:17 pm1 09/16 19:38 Order name: EKG - Nurse/Tech; Complete Time: 20:17 pm1 09/16 19:38 Order name: IV Saline Lock; Complete Time: 20:07 pm1 09/16 19:38 Order name: Labs collected and sent; Complete Time: 20:07 pm1 09/16 19:38 Order name: O2 Per Protocol; Complete Time: 20:07 pm1 09/16 19:38 Order name: O2 Sat Monitoring; Complete Time: 20:08 pm1 Administered Medications: 20:07 Drug: Meclizine 50 mg Route: PO; kg 21:25 Follow up: Response: No adverse reaction ea Disposition: 22:12 Co-signature as Attending Physician, Wayne Lin MD. pkl Disposition: 09/16/20 21:12 Discharged to Home. Impression: Benign paroxysmal vertigo. - Condition is Stable. - Discharge Instructions: Benign Positional Vertigo. - Prescriptions for Meclizine 25 mg Oral Tablet - take 1 tablet by ORAL route every 8 hours As needed; 30 tablet. - Medication Reconciliation Form, Thank You Letter, Antibiotic Education, Prescription Opioid Use form. - Follow up: Emergency Department; When: As needed; Reason: Worsening of condition. Follow up: Private Physician; When: 2 - 3 days; Reason: Recheck today's complaints, Continuance of care, Re-evaluation by your physician. - Problem is new. - Symptoms have improved. Signatures: Dispatcher [employer] EDMS Wayne Lin MD MD pkl Marinas, Patrick, LUMBER LOADER LUMBER LOADER pm1 Page Ellis RN RN ea Acob, Cheryl, RN RN ca1 Graham, Kristen kg Corrections: (The following items were deleted from the chart) 21:25 21:12 09/16/2020 21:12 Discharged to Home. Impression: Benign paroxysmal vertigo. ea Condition is Stable. Forms are Medication Reconciliation Form, Thank You Letter, Antibiotic Education, Prescription Opioid Use. Follow up: Emergency Department; When: As needed; Reason: Worsening of condition. Follow up: Private Physician; When: 2 - 3 days; Reason: Recheck today's complaints, Continuance of care, Re-evaluation by your physician. Problem is new. Symptoms have improved. pm1
--- NOTE | 2020-09-16 21:12 | ER ---
Nurse's Notes [facility] Name: Braden Delvalle Age: 70 yrs Sex: Male : 1950 Arrival Date: 09/16/2020 Time: 18:55 Bed 6 Private MD: Diagnosis: Benign paroxysmal vertigo Presentation: 09/16 19:00 Chief complaint: Patient states: Yesterday evening, was just sitting on the couch and ca1 suddenly the room ws spinning, took meclizine from previous episode with relief. This morning, still got dizzy when I woke up so I took 1 again. Last time I took meclizine is at 1500. at 1700 this evening, i was just sitting again and had another episode again. Coronavirus screen: Client denies travel out of the [place] in the last 14 days. At this time, the client does not indicate any symptoms associated with coronavirus-19. Ebola Screen: Patient negative for fever greater than or equal to 101.5 degrees Fahrenheit, and additional compatible Ebola Virus Disease symptoms Patient denies exposure to infectious person. Patient denies travel to an Ebola-affected area in the 21 days before illness onset. No symptoms or risks identified at this time. Initial Sepsis Screen: Does the patient meet any 2 criteria? No. Patient's initial sepsis screen is negative. Does the patient have a suspected source of infection? No. Patient's initial sepsis screen is negative. Risk Assessment: Do you want to hurt yourself or someone else? Patient reports no desire to harm self or others. Onset of symptoms was September 16, 2020. 19:00 Method Of Arrival: Ambulatory ca1 19:00 Acuity: CONRADO 3 ca1 Historical: - Allergies: 19:06 No Known Allergies; ca1 - Home Meds: 19:06 warfarin 4 mg Oral tab 1 tab MWF, 3mg TTH [Active]; ca1 - PMHx: 19:06 CVA; Diabetes - NIDDM; Hyperlipidemia; Hypertension; ca1 - Immunization history:: Client reports receiving the 2nd dose of the Covid vaccine, Client reports receiving the 1st dose of the Covid vaccine, Pneumococcal vaccine is up to date, Flu vaccine is up to date. - Social history:: Smoking status: Patient/guardian denies using tobacco, the patient reports quitting approximately 20 years ago. Screenin:46 Abuse screen: Denies threats or abuse. Nutritional screening: No deficits noted. ea Tuberculosis screening: No symptoms or risk factors identified. Fall Risk None identified. Assessment: 20:30 General: Appears in no apparent distress. Behavior is calm, cooperative, appropriate ea for age. Pain: Denies pain. Neuro: Level of Consciousness is awake, alert, obeys commands, Oriented to person, place, time. Cardiovascular: Patient's skin is warm and dry. Respiratory: Airway is patent Respiratory effort is even, unlabored, Respiratory pattern is regular, symmetrical. EENT:. Derm: Skin is pink, warm \T\ dry. 21:22 Reassessment: Patient and/or family updated on plan of care and expected duration. Pain ea level reassessed. Patient is alert, oriented x 3, equal unlabored respirations, skin warm/dry/pink. Discharge instruction given to patient verbalized the understanding of instruction. Vital Signs: 19:00 Pulse 84; Resp 16 S; Temp 97.9; Pulse Ox 99% ; Weight 83.91 kg (R); Height 5 ft. 8 in. ca1 (172.72 cm) (R); Pain 0/10; 19:06 BP 129 / 85; ca1 21:24 BP 146 / 75; Pulse 80; Resp 18; Pulse Ox 98% on R/A; ea 19:00 Body Mass Index 28.13 (83.91 kg, 172.72 cm) ca1 ED Course: 18:55 Patient arrived in ED. mr 19:04 Triage completed. ca1 19:06 Arm band placed on right wrist. ca1 19:28 Douglas Calderon NP is PHCP. pm1 19:28 Wayne Lin MD is Attending Physician. pm1 19:34 Nae Christianson is Primary Nurse. kg 19:52 CT Head Brain wo Cont In Process Unspecified. EDMS 19:56 XRAY Chest (1 view) In Process Unspecified. EDMS 20:00 Inserted saline lock: 22 gauge in left wrist, using aseptic technique. kg 20:46 Patient has correct armband on for positive identification. Bed in low position. Call ea light in reach. 21:23 No provider procedures requiring assistance completed. IV discontinued, intact, ea bleeding controlled, No redness/swelling at site. Pressure dressing applied. Administered Medications: 20:07 Drug: Meclizine 50 mg Route: PO; kg 21:25 Follow up: Response: No adverse reaction lexy Outcome: 21:12 Discharge ordered by MD. pm1 21:23 Discharged to home ambulatory, with family. lexy : Condition: stable 21:23 Discharge instructions given to patient, Instructed on discharge instructions, follow up and referral plans. medication usage, Demonstrated understanding of instructions, follow-up care, medications, Prescriptions given X 1. 21:25 Patient left the ED. ea Signatures: Dispatcher [employer] Farideh Hastings Patrick, SPECIAL LIBRARIAN SPECIAL LIBRARIAN pm1 Page Ellis, RN RN Prabha Arriaga RN RN Nae Lizama kg
[2020-09-16 21:32] VITALS: TEMP 97.9
[2020-09-16 21:34] VITALS: BP 146/75; O2SAT 98
--- NOTE | 2020-09-17 11:40 | EKG ---
Test Date: 2020-09-16 Test Time: 20:13:28 Inbound Customer Service Agent: EMILIA MEASUREMENT RESULTS: Intervals: Rate: 69 WA: 144 QRSD: 94 QT: 392 QTc: 420 [place]: P: 27 WA: 144 QRS: 14 T: 46 INTERPRETIVE STATEMENTS: Normal sinus rhythm Normal ECG Compared to ECG 07/28/2003 14:16:00 Left ventricular hypertrophy no longer present T-wave abnormality no longer present Electronically Signed On 09-17-20 11:39:26 CDT by Marcus Daigle
== END 2020-09-16 21:25 | disposition home or self-care (01) ==
LOC: ER 18:49
DX: H81.10 Benign paroxysmal vertigo, unspecified ear (principal); Z87.891 Personal history of nicotine dependence; Z86.73 Personal history of transient ischemic attack (TIA), and cerebral infarction without residual deficits; E11.9 Type 2 diabetes mellitus without complications; E78.5 Hyperlipidemia, unspecified; I10 Essential (primary) hypertension
CPT/HCPCS: 36415; 70450; 71045; 80048; 80076; 83735; 83880; 84484; 85025; 85610; 93005; 99284

== ENCOUNTER → 2023-07-28 | Emergency (ER) | payer OTHER ==
[~2023-07-28] MED LIST: ACETAMINOPHEN 500 MG TAB ONE; CODEINE 30MG/APAP 300MG TAB ONE; ONDANSETRON 4 MG (ODT) TAB ONE
--- NOTE | 2023-07-28 03:08 | EDPHYS ---
Physician Documentation [facility] – [place], [place] Name: Braedn Delvalle Age: 73 yrs Sex: Male : 1950 Arrival Date: 07/28/2023 Time: 01:33 Bed 5 Private MD: ED Physician Jerry Ortega HPI: 07/27 01:36 This 73 yrs old Male presents to ER via Unassigned with complaints of Nose sp4 Bleed, Pt on blood thinners. 01:45 73-year-old male presents with acute onset the right-sided epistaxis. Patient states he sp4 has been having on and off nasal bleed for the past several days. Patient states he is on warfarin for history of prior CVA. Patient does follow-up with ENT Dr. Amanda Ag. . Historical: - Allergies: 01:45 No Known Allergies; jb4 - Home Meds: 01:45 warfarin 4 mg Oral tab 1 tab MWF [Active]; jb4 - PMHx: 01:45 Hyperlipidemia; Diabetes - NIDDM; Hypertension; CVA; jb4 - Immunization history:: Adult Immunizations up to date. - Social history:: Smoking status: Patient denies any tobacco usage or history of. Patient uses alcohol, occasionally. ROS: 01:46 Constitutional: Negative for fever, chills, and weight loss, positive for right sp4 nosebleed Eyes: Negative for injury, pain, redness, and discharge, 01:46 All other systems are negative, Exam: 01:46 Constitutional: This is a well developed, well nourished patient who is awake, alert, sp4 and in no acute distress. Head/Face: Normocephalic, atraumatic. Eyes: Pupils equal round and reactive to light, extra-ocular motions intact. Lids and lashes normal. Conjunctiva and sclera are not injected. Cornea within normal limits. Periorbital areas with no swelling, redness, or edema. ENT: Tympanic membranes are normal and external auditory canals are clear. Oropharynx with no redness, swelling, or masses, exudates, or evidence of obstruction, uvula midline. Mucous membranes moist. There is acute right-sided epistaxis moderate intensity. Epistaxis appears to be posterior with blood trickling down the oropharynx. Neck: Trachea midline, no thyromegaly or masses palpated, and no cervical lymphadenopathy. Supple, full range of motion without nuchal rigidity, or vertebral point tenderness. Chest/axilla: Normal chest wall appearance and motion. Nontender with no deformity. No lesions are appreciated. Cardiovascular: Regular rate and rhythm with a normal S1 and S2. No gallops, murmurs, or rubs. Normal PMI, no JVD. No pulse deficits. Respiratory: Lungs have equal breath sounds bilaterally, clear to auscultation and percussion. No rales, rhonchi or wheezes noted. No increased work of breathing, no retractions or nasal flaring. Abdomen/GI: Soft, with normal bowel sounds. No distension or tympany. No guarding or rebound. No evidence of tenderness throughout. Back: No spinal tenderness. No costovertebral tenderness. Skin: Warm, dry with normal turgor. Normal color with no rashes, no lesions, and no evidence of cellulitis. MS/ Extremity: Pulses equal, no cyanosis. Neurovascular intact. Full, normal range of motion. Neuro: Awake and alert, GCS 15, oriented to person, place, time, and situation. Cranial nerves II-XII grossly intact. Motor strength 5/5 in all extremities. Sensory grossly intact. Psych: Awake, alert, with orientation to person, place and time. Behavior, mood, and affect are within normal limits Vital Signs: 01:43 BP 178 / 96; Pulse 81; Resp 16; Pulse Ox 98% on R/A; Weight 83.91 kg (R); Height 5 ft. jb4 7 in. (R); 01:48 BP 178 / 96; Pulse 83; Resp 16; Temp 97.3; Pulse Ox 100% ; Pain 2/10; bm8 03:07 BP 154 / 87; Pulse 75; Resp 16; Temp 97.3; Pulse Ox 98% on R/A; Pain 2/10; bm8 01:43 Body Mass Index 28.97 (83.91 kg, 170.18 cm) jb4 01:48 Pain Scale: Adult bm8 03:07 Pain Scale: Adult bm8 [place] Coma Score: 01:46 Eye Response: spontaneous(4). Motor Response: obeys commands(6). Verbal Response: sp4 oriented(5). Total: 15. 01:48 Eye Response: spontaneous(4). Motor Response: obeys commands(6). Verbal Response: bm8 oriented(5). Total: 15. Procedures: 02:41 Epistaxis treatment: A moderate amount of bleeding noted from right nare. Treated using sp4 rhino rocket, Bleeding stopped. No complications. Epistaxis resolved. MDM: 01:48 Patient medically screened. sp4 03:09 Differential diagnosis: nasal fracture, trauma, sinusitis, epistaxis r/t trauma, sp4 spontaneous epistaxis. Data reviewed: vital signs, nurses notes, old medical records. ED course: Rhino Rocket has stopped the nasal bleed. Patient stable for discharge home. Will advise follow-up with ENT in 2 to 3 days.. . Administered Medications: 01:59 Not Given (Physician Discretion): acetaminophen-codeine(300 mg-30 mg) 2 tabs PO once; sp4 RASS on ADMIN: Combtv4, Very Agttd3, Agttd2, Rstlss1, AlertClm0, Drwsy-1, Lt Sdtn-2, Mod Sdtn-3, Dp Sdtn-4, UnArsble-5 02:10 Drug: Ondansetron PO 8 mg PO once Route: PO; bm8 03:07 Follow up: Response: No adverse reaction bm8 02:10 Drug: Acetaminophen-Codeine PO (300 mg-30 mg) 1 tablet PO once; RASS on ADMIN: Combtv4, bm8 Very Agttd3, Agttd2, Rstlss1, AlertClm0, Drwsy-1, Lt Sdtn-2, Mod Sdtn-3, Dp Sdtn-4, UnArsble-5 Route: PO; 03:07 Follow up: Response: No adverse reaction bm8 Disposition Summary: 07/28/23 03:07 Discharge Ordered Problem: new sp4 Symptoms: have improved sp4 Condition: Stable sp4 Diagnosis - Epistaxis sp4 - Acute Right posterior epistaxis sp4 Followup: sp4 - With: Amanda Ag MD - When: 2 - 3 days - Reason: Recheck today's complaints Discharge Instructions: - Discharge Summary Sheet sp4 - Nosebleed, Adult, [id number] sp4 Forms: - Patient Portal Instructions sp4 Prescriptions: - acetaminophen-codeine 300-30 mg Oral tablet - take 1 tablet ORAL route every 6 hours PRN pain; 20 tablet; Refills: 0, Product sp4 Selection Permitted Signatures: Oliver Kate, RN RN jb4 Jerry Ortega MD MD sp4 Noe Austin RN RN bm8
--- NOTE | 2023-07-28 03:08 | ER ---
Nurse's Notes [facility] Name: Braden Delvalle Age: 73 yrs Sex: Male : 1950 Arrival Date: 07/28/2023 Time: 01:33 Bed 5 Private MD: Diagnosis: Epistaxis;Acute Right posterior epistaxis Presentation: 07/27 01:43 Chief complaint: Patient states: I have a nose bleed that started 20 minutes ago. I am jb4 on warfarin, the bleeding wont stop. Coronavirus screen: At this time, the client does not indicate any symptoms associated with coronavirus-19. Ebola Screen: No symptoms or risks identified at this time. Initial Sepsis Screen: Does the patient meet any 2 criteria? No. Patient's initial sepsis screen is negative. Does the patient have a suspected source of infection? No. Patient's initial sepsis screen is negative. Risk Assessment: Do you want to hurt yourself or someone else? Patient reports no desire to harm self or others. Onset of symptoms was July 28, 2023. Transition of care: patient was not received from another setting of care. 01:43 Method Of Arrival: Ambulatory jb4 01:43 Acuity: CONRADO 3 jb4 Triage Assessment: 01:45 General: Appears in no apparent distress. comfortable, Behavior is calm, cooperative, jb4 appropriate for age. Pain: Denies pain. EENT: Nares with drainage noted on right bleeding from right nare. Neuro: Level of Consciousness is awake, alert, obeys commands, Oriented to person, place, time, situation. Cardiovascular: Patient's skin is warm and dry. Respiratory: Airway is patent Respiratory effort is even, unlabored, Respiratory pattern is regular, symmetrical. Derm: Skin is intact, Skin is pink, warm \T\ dry. Historical: - Allergies: 01:45 No Known Allergies; jb4 - Home Meds: 01:45 warfarin 4 mg Oral tab 1 tab MWF [Active]; jb4 - PMHx: 01:45 Hyperlipidemia; Diabetes - NIDDM; Hypertension; CVA; jb4 - Immunization history:: Adult Immunizations up to date. - Social history:: Smoking status: Patient denies any tobacco usage or history of. Patient uses alcohol, occasionally. Screenin:48 [facility] ED Fall Risk Assessment (Adult) History of falling in the last 3 months, bm8 including since admission No falls in past 3 months (0 pts) Confusion or Disorientation No (0 pts) Intoxicated or Sedated No (0 pts) Impaired Gait No (0 pts) Mobility Assist Device Used No (0 pt) Altered Elimination No (0 pt) Score/Fall Risk Level 0 - 2 = Low Risk. [facility] ED Fall Risk Assessment (Adult) History of falling in the last 3 months, including since admission Score/Fall Risk Level 0 - 2 = Low Risk Oriented to surroundings, Maintained a safe environment, Educated pt \T\ family on fall prevention, incl call for assistance when getting out of bed. Abuse screen: Denies threats or abuse. Nutritional screening: No deficits noted. Tuberculosis screening: No symptoms or risk factors identified. Assessment: 01:48 Reassessment: Patient appears in no apparent distress at this time. Patient and/or bm8 family updated on plan of care and expected duration. Pain level reassessed. Patient is alert, oriented x 3, equal unlabored respirations, skin warm/dry/pink. Patient states feeling better. Patient states symptoms have improved. General: Appears in no apparent distress. comfortable, Behavior is calm, cooperative, appropriate for age. Pain: Complains of pain in nose Pain does not radiate. Pain currently is 2 out of 10 on a pain scale. Quality of pain is described as dull. Neuro: Level of Consciousness is awake, alert, obeys commands. Cardiovascular: Denies chest pain, shortness of breath. Respiratory: Airway is patent Respiratory effort is even, unlabored, Respiratory pattern is regular. GI: No deficits noted. No signs and/or symptoms were reported involving the gastrointestinal system. : No deficits noted. No signs and/or symptoms were reported regarding the genitourinary system. EENT: Nares bleeding has stopped after rhino rocket procedure. . Derm: No deficits noted. No signs and/or symptoms reported regarding the dermatologic system. Musculoskeletal: No deficits noted. No signs and/or symptoms reported regarding the musculoskeletal system. 03:05 Reassessment: Patient appears in no apparent distress at this time. No changes from bm8 previously documented assessment. Patient and/or family updated on plan of care and expected duration. Pain level reassessed. Patient is alert, oriented x 3, equal unlabored respirations, skin warm/dry/pink. Patient states feeling better. 03:05 Pain: Complains of pain in nose. bm8 Vital Signs: 01:43 BP 178 / 96; Pulse 81; Resp 16; Pulse Ox 98% on R/A; Weight 83.91 kg (R); Height 5 ft. jb4 7 in. (R); 01:48 BP 178 / 96; Pulse 83; Resp 16; Temp 97.3; Pulse Ox 100% ; Pain 2/10; bm8 03:07 BP 154 / 87; Pulse 75; Resp 16; Temp 97.3; Pulse Ox 98% on R/A; Pain 2/10; bm8 01:43 Body Mass Index 28.97 (83.91 kg, 170.18 cm) jb4 01:48 Pain Scale: Adult bm8 03:07 Pain Scale: Adult bm8 [place] Coma Score: 01:46 Eye Response: spontaneous(4). Motor Response: obeys commands(6). Verbal Response: sp4 oriented(5). Total: 15. 01:48 Eye Response: spontaneous(4). Motor Response: obeys commands(6). Verbal Response: bm8 oriented(5). Total: 15. ED Course: 01:34 Patient arrived in ED. jj6 01:36 Jerry Ortega MD is Attending Physician. sp4 01:45 Triage completed. jb4 01:45 Arm band placed on right wrist. jb4 01:48 Noe Austin, RN is Primary Nurse. bm8 01:48 Patient has correct armband on for positive identification. Bed in low position. Call bm8 light in reach. Side rails up X 1. Provided Education on: post er care of rhino rocket and when to follow up with ENT. Pulse ox on. NIBP on. Door closed. Noise minimized. Head of bed elevated. 01:48 Assist provider with nosebleed control using rhino rocket placed for extensive packing bm8 needs, Bleeding from right nares. Set up for procedure. Performed by Jerry Ortega MD Bleeding stopped. Patient tolerated well. Patient did not have IV access during this emergency room visit. Patient maintains SpO2 saturation greater than 95% on room air. 03:03 Amanda Ag MD is Referral Physician. sp4 Administered Medications: 01:59 Not Given (Physician Discretion): acetaminophen-codeine(300 mg-30 mg) 2 tabs PO once; sp4 RASS on ADMIN: Combtv4, Very Agttd3, Agttd2, Rstlss1, AlertClm0, Drwsy-1, Lt Sdtn-2, Mod Sdtn-3, Dp Sdtn-4, UnArsble-5 02:10 Drug: Ondansetron PO 8 mg PO once Route: PO; bm8 03:07 Follow up: Response: No adverse reaction bm8 02:10 Drug: Acetaminophen-Codeine PO (300 mg-30 mg) 1 tablet PO once; RASS on ADMIN: Combtv4, bm8 Very Agttd3, Agttd2, Rstlss1, AlertClm0, Drwsy-1, Lt Sdtn-2, Mod Sdtn-3, Dp Sdtn-4, UnArsble-5 Route: PO; 03:07 Follow up: Response: No adverse reaction bm8 Medication: 01:48 VIS not applicable for this client. bm8 Outcome: 03:07 Discharge ordered by . sp4 03:08 Discharged to home with significant other, bm8 03:08 Condition: stable 03:08 Discharge instructions given to patient, significant other, Instructed on discharge instructions, follow up and referral plans. medication usage, safety practices, Demonstrated understanding of instructions, follow-up care, medications, 03:15 Patient left the ED. bm8 Signatures: Oliver Kate, RN RN jb4 Daniela Orlando6 Jerry Ortega MD MD sp4 Noe Austin RN RN bm8
[2023-07-28 03:33] VITALS: BP 154/87; TEMP 97.3; O2SAT 98
== END ==
LOC: ER 01:33
PROC: 2Y41X5Z Packing of Nasal Region using Packing Material (ICD-10-PCS; principal; 2023-07-28)
DX: R04.0 Epistaxis (principal); Z79.01 Long term (current) use of anticoagulants
CPT/HCPCS: 30905; Q0162

== ENCOUNTER → 2023-07-28 | Emergency (ER) | payer OTHER ==
--- NOTE | 2023-07-28 12:36 | EDPHYS ---
Physician Documentation [facility] Name: Braden Delvalle Age: 73 yrs Sex: Male : 1950 Arrival Date: 07/28/2023 Time: 10:43 Bed IW1 Private MD: Lisette Clemens ED Physician Kade Donahue HPI: 07/27 12:26 This 73 yrs old Male presents to ER via Ambulatory with complaints of Nose Bleed. rn 12:26 The patient presents with a nose bleed, that is apparently anterior, from the right rn nare. Onset: The symptoms/episode began/occurred yesterday. Modifying factors: The symptoms are alleviated by nothing. the symptoms are aggravated by nothing. Severity of symptoms: At their worst the symptoms were moderate in the emergency department the symptoms have improved. The patient has not experienced similar symptoms in the past. The patient has been recently seen at the [facility] Emergency Department. Patient seen yesterday in ER for nosebleed. Takes Coumadin. Rhino Rocket was placed but has very slow persistent bleed from right nare still.. Historical: - Allergies: 10:55 No Known Allergies; hb - Home Meds: 10:55 warfarin 4 mg Oral tab 1 tab MWF [Active]; hb - PMHx: 10:55 CVA; Diabetes - NIDDM; Hyperlipidemia; Hypertension; hb - Immunization history:: Adult Immunizations up to date. - Social history:: Smoking status: Patient denies any tobacco usage or history of. - Family history:: not pertinent. - Hospitalizations: : No recent hospitalization is reported. ROS: 12:26 Constitutional: Negative for fever, chills, and weight loss, ENT: Positive for right rn nostril bleeding Respiratory: Negative for shortness of breath Neuro: Negative for syncope or seizure Exam: 12:26 Constitutional: This is a well developed, well nourished patient who is awake, alert, rn and in no acute distress. ENT: Slow bleeding from right nare. Rhino Rocket in place but minimally inflated. Vital Signs: 10:54 BP 156 / 98; Pulse 68; Resp 16; Temp 97.3(TE); Pulse Ox 100% on R/A; Weight 83.91 kg; hb Height 5 ft. 7 in. ; Pain 0/10; 12:43 BP 148 / 77; Pulse 72; Resp 18; Pulse Ox 98% on R/A; kd3 10:54 Body Mass Index 28.97 (83.91 kg, 170.18 cm) hb 10:54 Pain Scale: Adult hb Procedures: 12:26 Performed Inflation of Rhino Rocket. 3 cc air added to existing volume of Rhino Rocket rn in right nare. Bleeding stopped. Patient tolerated well.. MDM: 10:47 Patient medically screened. rn 10:57 ED course: Added 3 cc air into already present Rhino Rocket. rn 12:26 Differential diagnosis: spontaneous epistaxis. Data reviewed: vital signs, nurses rn notes, and as a result, I will discharge patient. Counseling: I had a detailed discussion with the patient and/or guardian regarding the historical points, exam findings, and any diagnostic results supporting the discharge/admit diagnosis, the need for outpatient follow up, to return to the emergency department if symptoms worsen or persist or if there are any questions or concerns that arise at home. Special discussion: I discussed with the patient/guardian in detail that at this point there is no indication for admission to the hospital. It is understood, however, that if the symptoms persist or worsen the patient needs to return immediately for re-evaluation. Based on the history and exam findings, there is no indication for further emergent testing or inpatient evaluation. I discussed with the patient/guardian the need to see the ENT specialist for further evaluation of the symptoms. 12:35 Response to treatment: the patient's symptoms have resolved after treatment. rn Administered Medications: 12:30 Drug: Acetaminophen PO 500 mg PO once Route: PO; kd3 12:44 Follow up: Response: No adverse reaction; Pain is decreased kd3 Disposition Summary: 07/28/23 12:35 Discharge Ordered Notes: Location: Home rn Problem: new rn Symptoms: have improved rn Condition: Stable rn Diagnosis - Epistaxis rn Followup: rn - With: Amanda Ag MD - When: 2 - 3 days - Reason: Recheck today's complaints, Re-evaluation by your physician Discharge Instructions: - Discharge Summary Sheet rn - Nosebleed, Adult rn Forms: - Medication Reconciliation Form rn - Thank You Letter rn - Antibiotic rn physician office - Prescription Opioid Use rn - Patient Portal Instructions rn - Leadership Thank You Letter rn Prescriptions: - Augmentin 875-125 mg Oral Tablet - take 1 tablet ORAL route every 12 hours for 10 days; 20 tablet; Refills: 0, rn Product Selection Permitted Signatures: Kade Donahue MD MD rn Mariana Olsen RN RN Nilda Barrera RN RN kd3
--- NOTE | 2023-07-28 12:36 | ER ---
Nurse's Notes [facility] Name: Braden Delvalle Age: 73 yrs Sex: Male : 1950 Arrival Date: 07/28/2023 Time: 10:43 Bed IW1 Private MD: Lisette Clemens Diagnosis: Epistaxis Presentation: 07/27 10:54 Chief complaint: Seen in ED for nosebleed last night, RhinoRocket in right nare, c/o hb continual bleeding this morning. Coronavirus screen: At this time, the client does not indicate any symptoms associated with coronavirus-19. Ebola Screen: No symptoms or risks identified at this time. Initial Sepsis Screen: Does the patient meet any 2 criteria? No. Patient's initial sepsis screen is negative. Does the patient have a suspected source of infection? No. Patient's initial sepsis screen is negative. Risk Assessment: Do you want to hurt yourself or someone else? Patient reports no desire to harm self or others. Onset of symptoms was July 28, 2023. 10:54 Method Of Arrival: Ambulatory hb 10:54 Acuity: CONRADO 3 hb Triage Assessment: 10:55 General: Appears in no apparent distress. Behavior is calm, cooperative. Pain: Denies hb pain. EENT: Reports bleeding from right nare, RhinoRocket in place. Neuro: Level of Consciousness is awake, alert, obeys commands, Oriented to person, place, time, situation. Cardiovascular: Patient's skin is warm and dry. Respiratory: Respiratory effort is even, unlabored, Respiratory pattern is regular, symmetrical. Historical: - Allergies: 10:55 No Known Allergies; hb - Home Meds: 10:55 warfarin 4 mg Oral tab 1 tab MWF [Active]; hb - PMHx: 10:55 CVA; Diabetes - NIDDM; Hyperlipidemia; Hypertension; hb - Immunization history:: Adult Immunizations up to date. - Social history:: Smoking status: Patient denies any tobacco usage or history of. - Family history:: not pertinent. - Hospitalizations: : No recent hospitalization is reported. Screenin:[address] [facility] ED Fall Risk Assessment (Adult) History of falling in the last 3 months, kd3 including since admission No falls in past 3 months (0 pts) Confusion or Disorientation No (0 pts) Intoxicated or Sedated No (0 pts) Impaired Gait No (0 pts) Mobility Assist Device Used No (0 pt) Altered Elimination No (0 pt) Score/Fall Risk Level 0 - 2 = Low Risk Oriented to surroundings. Abuse screen: Denies threats or abuse. Denies injuries from another. Nutritional screening: No deficits noted. Tuberculosis screening: No symptoms or risk factors identified. Assessment: 12:30 General: Pt seen in the lobby by this RN for Tylenol administration. Pt is alert and kd3 oriented x 4, respirations are even and unlabored, skin is warm and dry pt is managing his own secretions. Pt has a nasal rocket to the right nares.. Vital Signs: 10:54 BP 156 / 98; Pulse 68; Resp 16; Temp 97.3(TE); Pulse Ox 100% on R/A; Weight 83.91 kg; hb Height 5 ft. 7 in. ; Pain 0/10; 12:43 BP 148 / 77; Pulse 72; Resp 18; Pulse Ox 98% on R/A; kd3 10:54 Body Mass Index 28.97 (83.91 kg, 170.18 cm) hb 10:54 Pain Scale: Adult hb ED Course: 10:45 Patient arrived in ED. mr 10:46 Rocco Clemenski is Private Physician. mr 10:47 Kade Donahue MD is Attending Physician. rn 10:55 Triage completed. hb 10:57 Arm band placed on. hb 12:35 Amanda Ag MD is Referral Physician. rn 12:44 Patient has correct armband on for positive identification. Provided Education on: kd3 nasal rocket . 12:44 No provider procedures requiring assistance completed. Patient did not have IV access kd3 during this emergency room visit. Administered Medications: 12:30 Drug: Acetaminophen PO 500 mg PO once Route: PO; kd3 12:44 Follow up: Response: No adverse reaction; Pain is decreased kd3 Medication: 12:44 VIS not applicable for this client. kd3 Outcome: 12:35 Discharge ordered by . rn 12:44 Discharged to home ambulatory, kd3 12:44 Condition: stable 12:44 Discharge instructions given to patient, Instructed on discharge instructions, follow up and referral plans. medication usage, Demonstrated understanding of instructions, follow-up care, medications, Prescriptions given X 1, 12:45 Patient left the ED. kd3 Signatures: Farideh Sidhu Reg Reg mr Kade Donahue MD MD rn Baxter, Heather, RN RN Nilda Bhat RN RN kd3 Corrections: (The following items were deleted from the chart) 10:57 10:54 BP 156 / 98; Pulse 68bpm; Resp 16bpm; Pulse Ox 100% RA; Temp 97.3F Temporal; Pain hb 0/10, Adult; hb
[2023-07-28 13:18] VITALS: BP 148/77; TEMP 97.3; O2SAT 98
== END ==
LOC: ER 10:43
DX: R04.0 Epistaxis (principal); Z79.01 Long term (current) use of anticoagulants

== ENCOUNTER 2023-07-30 17:41 | Emergency (ER) | payer OTHER ==
[2023-07-30] MEDS ORDERED: OXYMETAZOLINE HCL 0.05% 15ML NAS ONE (17:54)
--- NOTE | 2023-07-30 19:24 | ER ---
Nurse's Notes [facility] Name: Braden Delvalle Age: 73 yrs Sex: Male : 1950 Arrival Date: 07/30/2023 Time: 17:41 Bed 9 Private MD: Shay White T Diagnosis: Encounter for removal of nasal packing Presentation: 07/29 17:59 Chief complaint: Patient states: he needs to have his nasal rocket removed that was ap3 placed 2 days ago in his right nare. Coronavirus screen: At this time, the client does not indicate any symptoms associated with coronavirus-19. Ebola Screen: No symptoms or risks identified at this time. Initial Sepsis Screen: Does the patient meet any 2 criteria? No. Patient's initial sepsis screen is negative. Does the patient have a suspected source of infection? No. Patient's initial sepsis screen is negative. Risk Assessment: Do you want to hurt yourself or someone else? Patient reports no desire to harm self or others. Onset of symptoms is unknown. 17:59 Method Of Arrival: Ambulatory ap3 17:59 Acuity: CONRADO 4 ap3 Triage Assessment: 18:00 General: Appears in no apparent distress. Behavior is calm, cooperative, appropriate ap3 for age. Pain: Denies pain. EENT: Nares with bleeding noted on right. Neuro: Level of Consciousness is awake, alert, obeys commands, Oriented to person, place, time, situation, Appropriate for age Gait is steady, Speech is normal. Cardiovascular: Patient's skin is warm and dry. Respiratory: Airway is patent Respiratory effort is even, unlabored, Respiratory pattern is regular, symmetrical. Historical: - Allergies: 18:00 No Known Allergies; ap3 - PMHx: 18:00 CVA; Diabetes - NIDDM; Hyperlipidemia; Hypertension; ap3 - Immunization history:: Client reports receiving the 2nd dose of the Covid vaccine, Flu vaccine is up to date. - Social history:: Smoking status: Patient denies any tobacco usage or history of. - Family history:: not pertinent. - Hospitalizations: : No recent hospitalization is reported. Screenin:01 [facility] ED Fall Risk Assessment (Adult) History of falling in the last 3 months, ap3 including since admission No falls in past 3 months (0 pts) Confusion or Disorientation No (0 pts) Intoxicated or Sedated No (0 pts) Impaired Gait No (0 pts) Mobility Assist Device Used No (0 pt) Altered Elimination No (0 pt) Score/Fall Risk Level 0 - 2 = Low Risk Oriented to surroundings, Maintained a safe environment, Educated pt \T\ family on fall prevention, incl call for assistance when getting out of bed, Assessed \T\ reinforced patient's understanding of fall precautions, Provided non-skid footwear, Hourly rounding (assess needs \T\ fall precautionary measures) done, Used ambulatory aids as needed (educated on \T\ assisted with), Used gait belt as appropriate. Abuse screen: Denies threats or abuse. Nutritional screening: No deficits noted. Tuberculosis screening: No symptoms or risk factors identified. Assessment: 19:00 General: Appears in no apparent distress. comfortable, well groomed, well developed, pf1 Behavior is calm, cooperative, appropriate for age, quiet. 19:15 Pain: Denies pain. Neuro: No deficits noted. Level of Consciousness is awake, alert, pf1 obeys commands, Oriented to person, place, time, situation. Cardiovascular: No deficits noted. Capillary refill < 3 seconds Patient's skin is warm and dry. Respiratory: No deficits noted. Airway is patent Respiratory effort is even, unlabored, Respiratory pattern is regular, symmetrical. GI: No deficits noted. No signs and/or symptoms were reported involving the gastrointestinal system. : No deficits noted. No signs and/or symptoms were reported regarding the genitourinary system. EENT: Reports nasal discharge that is bloody Patient stated removed nasal clamp, right naris started dripping blood, notified Dr. Donahue. 19:15 Derm: No deficits noted. No signs and/or symptoms reported regarding the dermatologic pf1 system. Musculoskeletal: No deficits noted. No signs and/or symptoms reported regarding the musculoskeletal system. Vital Signs: 17:59 BP 138 / 84; Resp 17; Temp 98.1; Weight 86.18 kg; Height 5 ft. 8 in. ; ap3 18:24 Pulse 88; Pulse Ox 98% ; ap3 19:30 BP 131 / 78; Pulse 85; Resp 16; Temp 98; Pulse Ox 99% on R/A; Pain 0/10; pf1 17:59 Body Mass Index 28.89 (86.18 kg, 172.72 cm) ap3 19:30 Pain Scale: Adult pf1 ED Course: 17:43 Patient arrived in ED. mr 17:43 Shay White MD is Private Physician. mr 17:44 Kade Donahue MD is Attending Physician. rn 18:00 Triage completed. ap3 18:02 Arm band placed on right wrist. ap3 18:02 Patient has correct armband on for positive identification. Bed in low position. Call ap3 light in reach. Side rails up X 1. Adult w/ patient. Pulse ox on. NIBP on. 19:00 No provider procedures requiring assistance completed. pf1 19:00 Patient did not have IV access during this emergency room visit. pf1 19:22 Amanda Ag MD is Referral Physician. rn 19:45 Provided Education on: follow up with ENT. pf1 Administered Medications: No medications were administered Medication: 19:45 VIS not applicable for this client. pf1 Outcome: 19:23 Discharge ordered by MD. rn 19:45 Discharged to home ambulatory, with family, pf1 19:45 Condition: improved 19:45 Discharge instructions given to patient, family, Instructed on discharge instructions, follow up and referral plans. Demonstrated understanding of instructions, follow-up care, 19:45 Patient left the ED. pf1 Signatures: Farideh Sidhu, Reg Reg mr Kade Donahue MD MD rn Prokisch, Amanda, RN RN ap3 Ragini Blunt RN RN pf1 Corrections: (The following items were deleted from the chart) 07/30 05:42 03 19:52 Patient left the ED. pf1 pf1
--- NOTE | 2023-07-30 19:24 | EDPHYS ---
Physician Documentation [facility] Name: Braden Delvalle Age: 73 yrs Sex: Male : 1950 Arrival Date: 07/30/2023 Time: 17:41 Bed 9 Private MD: Shay White T ED Physician Kade Donahue HPI: 07/29 18:03 This 73 yrs old Male presents to ER via Ambulatory with complaints of Nose plug removal.rn 18:03 Patient reports Rhino Rocket placed for nasal bleeding a few days ago. Unable to rn follow-up with ENT so came here for possible removal.. Patient reports no longer bleeding, actually feels like Rhino Rocket has deflated a little bit. Denies pain. Denies fever.. Historical: - Allergies: 18:00 No Known Allergies; ap3 - PMHx: 18:00 CVA; Diabetes - NIDDM; Hyperlipidemia; Hypertension; ap3 - Immunization history:: Client reports receiving the 2nd dose of the Covid vaccine, Flu vaccine is up to date. - Social history:: Smoking status: Patient denies any tobacco usage or history of. - Family history:: not pertinent. - Hospitalizations: : No recent hospitalization is reported. ROS: 18:03 Constitutional: Negative for fever, chills, and weight loss, ENT: Negative for further rn bleeding Cardiovascular: Negative for chest pain, palpitations, and edema, Respiratory: Negative for shortness of breath, cough, wheezing, and pleuritic chest pain, Exam: 18:03 Constitutional: This is a well developed, well nourished patient who is awake, alert, rn and in no acute distress. ENT: Rhino Rocket left nare, no bleeding Vital Signs: 17:59 BP 138 / 84; Resp 17; Temp 98.1; Weight 86.18 kg; Height 5 ft. 8 in. ; ap3 18:24 Pulse 88; Pulse Ox 98% ; ap3 19:30 BP 131 / 78; Pulse 85; Resp 16; Temp 98; Pulse Ox 99% on R/A; Pain 0/10; pf1 17:59 Body Mass Index 28.89 (86.18 kg, 172.72 cm) ap3 19:30 Pain Scale: Adult pf1 Procedures: 18:31 Performed Removal of Rhino Rocket nasal packing. Rhino Rocket deflated, slowly removed, rn no active bleeding noted after removal. Tolerated well.. 19:43 Epistaxis treatment: A small amount of bleeding noted from Treated using rhino rocket, rn Bleeding stopped. MDM: 17:44 Patient medically screened. rn 19:21 Differential Diagnosis Rhino Rocket removal. Data reviewed: vital signs, nurses notes, rn and as a result, I will discharge patient. Counseling: I had a detailed discussion with the patient and/or guardian regarding the historical points, exam findings, and any diagnostic results supporting the discharge/admit diagnosis, the need for outpatient follow up, to return to the emergency department if symptoms worsen or persist or if there are any questions or concerns that arise at home. Special discussion: I discussed with the patient/guardian in detail that at this point there is no indication for admission to the hospital. It is understood, however, that if the symptoms persist or worsen the patient needs to return immediately for re-evaluation. Based on the history and exam findings, there is no indication for further emergent testing or inpatient evaluation. I discussed with the patient/guardian the need to see the ENT specialist for further evaluation of the symptoms. ED course: No further bleeding, observed for 2 hours. Will DC home with return precautions. 19:43 ED course: Upon discharge patient started to trickle blood again. New Rhino Rocket rn placed with hemostasis achieved.. 07/29 19:52 Order name: [facility] [place]. Order: rhino rocket to beside please, 5.5cm anterior; Complete Time: rn 05:41 Administered Medications: No medications were administered Disposition Summary: 07/30/23 19:23 Discharge Ordered Notes: Location: Home rn Problem: new rn Symptoms: have improved rn Condition: Stable rn Diagnosis - Encounter for removal of nasal packing rn Followup: rn - With: Amanda Ag MD - When: As needed - Reason: Recheck today's complaints, Re-evaluation by your physician Discharge Instructions: - Discharge Summary Sheet rn - Nosebleed, Adult rn Forms: - Medication Reconciliation Form rn - Thank You Letter rn - Antibiotic psychology intern - Prescription Opioid Use rn - Patient Portal Instructions rn - Leadership Thank You Letter rn Signatures: Kade Donahue MD MD rn Prokisch, Amanda, RN RN ap3
[2023-07-30 20:08] VITALS: BP 138/84; TEMP 98.1; O2SAT 98
== END 2023-07-30 19:52 | disposition home or self-care (01) ==
LOC: ER 17:41
DX: Z48.00 Encounter for change or removal of nonsurgical wound dressing (principal); R04.0 Epistaxis
CPT/HCPCS: 30901; 99283

== ENCOUNTER 2023-08-02 11:46 | Emergency (ER) | payer OTHER ==
--- NOTE | 2023-08-02 12:17 | EDPHYS ---
Physician Documentation [facility] Name: Braden Delvalle Age: 73 yrs Sex: Male : 1950 Arrival Date: 08/02/2023 Time: 11:46 Bed IW10 Private MD: Shay White T ED Physician Paul Villatoro HPI: 08/01 12:17 This 73 yrs old Male presents to ER via Ambulatory with complaints of Remove nose plug. ms3 12:17 73-year-old male with past medical history of CVA, diabetes, hyperlipidemia, ms3 hypertension presents to the emergency department for removal of Rhino Rocket in right nare. Patient states Rhino Rocket was placed on Wednesday. Patient states prior to that Rhino Rocket was placed on Wednesday and after removal it began to bleed and an additional 1 was placed on Wednesday. Historical: - Allergies: 12:10 No Known Allergies; ll1 - PMHx: 12:10 CVA; Diabetes - NIDDM; Hyperlipidemia; Hypertension; ll1 - Immunization history:: Adult Immunizations up to date. - Infectious Disease History:: Denies. - Social history:: Smoking status: Patient denies any tobacco usage or history of. ROS: 12:17 Constitutional: Negative for fever, and chills. Neck: Negative for injury, pain, and ms3 swelling, Cardiovascular: Negative for chest pain, and palpitations. Respiratory: Negative for shortness of breath, cough, wheezing, and pleuritic chest pain, Abdomen/GI: Negative for abdominal pain, nausea, vomiting, diarrhea, and constipation, 12:17 ENT: Positive for Rhino Rocket in place, Exam: 12:17 Constitutional: This is a well developed, well nourished patient who is awake, alert, ms3 and in no acute distress. Head/Face: Normocephalic, atraumatic. 12:17 Cardiovascular: Regular rate and rhythm with a normal S1 and S2. No gallops, murmurs, or rubs. Normal PMI, no JVD. No pulse deficits. Respiratory: Lungs have equal breath sounds bilaterally, clear to auscultation and percussion. No rales, rhonchi or wheezes noted. No increased work of breathing, no retractions or nasal flaring. Abdomen/GI: Soft, non-tender, with normal bowel sounds. No distension or tympany. No guarding or rebound. No evidence of tenderness throughout. 12:17 ENT: Nose: Rhino Rocket in right nare, Vital Signs: 12:16 BP 148 / 81; Pulse 94; Resp 17; Temp 97.8; Pulse Ox 96% ; Pain 0/10; ll1 12:16 Pain Scale: Adult ll1 MDM: 12:16 Patient medically screened. ms3 12:17 Differential diagnosis: foreign body - unresolved, spontaneous epistaxis. Data ms3 reviewed: vital signs, nurses notes, and as a result, I will discharge patient. Management of patient was discussed with the following: Professor Of History: Discussed case with Dr Linda and she will see patient at 2 pm to remove rhino rocket. Care significantly affected by the following chronic conditions: Diabetes, Hypertension, Hyperlipidemia. Counseling: I had a detailed discussion with the patient and/or guardian regarding the historical points, exam findings, and any diagnostic results supporting the discharge/admit diagnosis, the need for outpatient follow up, to return to the emergency department if symptoms worsen or persist or if there are any questions or concerns that arise at home. Special discussion: I discussed with the patient/guardian in detail that at this point there is no indication for admission to the hospital. It is understood, however, that if the symptoms persist or worsen the patient needs to return immediately for re-evaluation. ED course: Discussed conversation with Dr. Linda with patient. Patient to follow-up with Dr. Linda at 2 PM. Patient understands and agrees with plan. All questions were answered. Return precautions discussed include worsening symptoms, or any other concerns. Administered Medications: No medications were administered Disposition Summary: 08/02/23 12:17 Discharge Ordered Notes: Location: Home ms3 Condition: Stable ms3 Diagnosis - Epistaxis ms3 Followup: ms3 - With: Haily Linda MD - When: 08/02/2023 - Reason: Continuance of care Discharge Instructions: - Discharge Summary Sheet ms3 - Nosebleed, Adult ms3 Forms: - Medication Reconciliation Form ms3 - Thank You Letter ms3 - Antibiotic Education ms3 - Prescription Opioid Use ms3 - Patient Portal Instructions ms3 - Leadership Thank You Letter ms3 Signatures: Pepe Garcia RN RN ll1 Paul Villatoro DO DO ms3
--- NOTE | 2023-08-02 12:17 | ER ---
Nurse's Notes [facility] Name: Braden Delvalle Age: 73 yrs Sex: Male : 1950 Arrival Date: 08/02/2023 Time: 11:46 Bed IW10 Private MD: Shay White T Diagnosis: Epistaxis Presentation: 08/01 12:10 Chief complaint: Patient states: Wants rhino rocket removed from nose, place Wednesday ll1 (2nd one). Coronavirus screen: Client denies travel out of the [place] in the last 14 days. At this time, the client does not indicate any symptoms associated with coronavirus-19. Ebola Screen: Patient denies travel to an Ebola-affected area in the 21 days before illness onset. Initial Sepsis Screen: Does the patient meet any 2 criteria? No. Patient's initial sepsis screen is negative. Does the patient have a suspected source of infection? No. Patient's initial sepsis screen is negative. Risk Assessment: Do you want to hurt yourself or someone else? Patient reports no desire to harm self or others. Onset of symptoms was July 30, 2023. 12:10 Method Of Arrival: Ambulatory ll1 12:10 Acuity: CONRADO 5 ll1 Triage Assessment: 12:11 General: Appears in no apparent distress. Behavior is calm, cooperative, appropriate ll1 for age, wants rhino rocket removed. Pain: Denies pain. EENT: Reports wanting rhino rocket removed. Historical: - Allergies: 12:10 No Known Allergies; ll1 - PMHx: 12:10 CVA; Diabetes - NIDDM; Hyperlipidemia; Hypertension; ll1 - Immunization history:: Adult Immunizations up to date. - Infectious Disease History:: Denies. - Social history:: Smoking status: Patient denies any tobacco usage or history of. Screenin:[address] [facility] ED Fall Risk Assessment (Adult) History of falling in the last 3 months, ll1 including since admission No falls in past 3 months (0 pts) Confusion or Disorientation No (0 pts) Intoxicated or Sedated No (0 pts) Impaired Gait No (0 pts) Mobility Assist Device Used No (0 pt) Altered Elimination No (0 pt) Score/Fall Risk Level 0 - 2 = Low Risk Oriented to surroundings, Hourly rounding (assess needs \T\ fall precautionary measures) done. Abuse screen: Denies threats or abuse. Nutritional screening: No deficits noted. Tuberculosis screening: No symptoms or risk factors identified. Vital Signs: 12:16 BP 148 / 81; Pulse 94; Resp 17; Temp 97.8; Pulse Ox 96% ; Pain 0/10; ll1 12:16 Pain Scale: Adult ll1 ED Course: 11:48 Patient arrived in ED. mr 11:48 Shay White MD is Private Physician. mr 11:50 Paul Villatoro DO is Attending Physician. ll1 12:10 Arm band placed on. ll1 12:11 Triage completed. ll1 12:16 Haily Linda MD is Referral Physician. ms3 12:17 Provided Education on: follow-up with ENT at 1400. . ll1 12:17 No provider procedures requiring assistance completed. Patient did not have IV access ll1 during this emergency room visit. 12:21 Patient has correct armband on for positive identification. ll1 Administered Medications: No medications were administered Medication: 12:18 VIS not applicable for this client. ll1 Outcome: 12:17 Discharge ordered by . ms3 12:17 Discharged to home ambulatory, ll1 12:17 Condition: stable 12:17 Discharge instructions given to patient, Instructed on discharge instructions, follow up and referral plans. Demonstrated understanding of instructions, follow-up care, 12:21 Patient left the ED. ll1 Signatures: Farideh Sidhu, Ethan Reg Pepe Garcia, RN RN ll1 Paul Villatoro DO DO ms3
[2023-08-02 17:17] VITALS: BP 148/81; TEMP 97.8; O2SAT 96
== END 2023-08-02 12:21 | disposition home or self-care (01) ==
LOC: ER 11:46
DX: R04.0 Epistaxis (principal)
CPT/HCPCS: 99282